=== PATIENT | male | born 1970 | race Caucasian/White ===

== ENCOUNTER 2022-09-12 12:23 | Day surgery (SDC) | payer OTHER, SELFPAY ==
[2022-09-12 12:46] VITALS: BP 133/81; PULSE 59; RESP 18; TEMP 36.7; O2SAT 98; BMI 25.1
[2022-09-12] MEDS: Lactated Ringers 1,000 ML 15 ML IV (12:52)
--- NOTE | 2022-09-12 13:11 | HP.PCM_ITS ---
History and Physical Date of Admission: 09/12/22 2 M who presents to the office today to establish with GI for intermittent difficulty swallowing for approx one yr. Not getting worse. Has to be careful when eating meat especially. Sometimes needs to cough the food back up. No ED visits for this. He takes TUMS about once a week for heartburn. 12/28/21 double contrast esophagram: esophageal shiver indicative of chronic inflammation usually seen in the setting of reflux although no reflux seen on this exam; a few tertiary contractions indicative of mild dysmotility. He doesn't have CP, known spasms. No nausea, vomiting, abd pain. No diarrhea, constipation, melena, hematochezia. Had colonoscopy in 2019, told to repeat in 10 yrs. PMH includes migraines, HTN, hyperlipidemia ROS Const Constitutional: No fatigue ENT ENT: Positive for difficulty swallowing Gastro GI: Positive for heartburn and difficulty swallowing; No abdominal pain, belching, bloating, change in bowel habits, change in stool character, coffee ground emesis, constipation, cramping, diarrhea, feeling full early, excessive flatus, incontinent of stools, Vomiting blood/hematemesis, Blood in stool, loose stools, Black,tarry stools, nausea/dyspepsia, pain with swallowing, vomiting or other Musc Musculoskeletal: Positive for back pain; No joint pain Skin Skin: No yellowing of the eye or itchy eyes Psych Psychiatric: No anxiety and No depression Endo Endocrine: No fatigue Aller/Imm Allergy/Immunologic: No itchy eyes Anatoliy/Lymp Hematologic/Lymphatic: No easy bleeding or easy bruising Exam Const General: cooperative, healthy appearing and comfortable Orientation: alert, awake and oriented x3 HENMT Head: normal to inspection Neck Neck: normal visual inspection Chest Chest palpation & inspection: normal inspection of the chest Resp Effort & Inspection: normal respiratory effort GI Inspection: normal to inspection Quality Reporting Tobacco Screening ([facility] 138) Smoking Status: Former smoker Assessment and Plan Assessment and Plan (1) Dysphagia: ?Status:?Chronic ?Plan: 52 yo male with esophageal dysphagia, likely due to reflux, may have a Schatzki ring. Esophagram with esophageal shiver which typically indicates reflux, there were some tertiary esphageal spasms. Will get EGD, with f/u in office 2 wks later. He declines PPI at this time. I have examined the patient and the H&P has been reviewed. There are no clinical changes since date of exam.
--- NOTE | 2022-09-12 13:30 | EGD_PTH ---
PATIENT: SANDRINE WITT LOC: EN U#:[id number] AGE/SX: 52/M ROOM: RE09/12/[address]: Dr. Esteban Robert DO : 1970 BED: DIS: 09/12/2022 SPEC #: [id number] RECD: 09/12/22 15:02 STATUS: KATHI RENatasha #: [id number] CARINA: 09/12/22 13:[address]: Esteban Robert DEPT: SURGICAL PATHOLOGY RECD BY: Tarun Ventura ENTERED: 09/13/22 10:39 SP TYPE: EGD BIOPSY EVA DR: Odette Sheridan, BELL CAPTAIN-C Tissues: A - Gastric mucous membrane B - Esophagus, NOS C - Esophagus, NOS Procedures: Surgery Specimen Level IV HEADER OPERATION: EGD ([facility]) PRE-OP DIAGNOSIS: Dysphagia TISSUE SUBMITTED: A ? Gastric body biopsy, B ? Distal esophagus biopsy, C ? Random esophagus biopsy MICROSCOPIC DIAGNOSIS A. Gastric body, biopsy: Mild gastritis. See microscopic description and comment. B. Distal esophagus, biopsy: Fragments of gastroesophageal mucosa with moderate chronic inflammation and mild acute inflammation. Intestinal metaplasia (goblet cell metaplasia) not identified. See comment. C. Esophagus, random biopsy: Fragments of squamous mucosa with mild chronic inflammation. SJ:rg 09/14/2022 COMMENT A. The results of immunohistochemistry for Helicobacter pylori will be reported separately ([id number]). B. Alcian blue/PAS stain with matched control is used in the evaluation of the specimen. MICROSCOPIC DESCRIPTION Slides are reviewed. A. The specimen shows fragments of gastric mucosa with chronic inflammatory cell infiltrates in the lamina propria consisting of lymphocytes and plasma cells, consistent with mild chronic gastritis. GROSS DESCRIPTION A - Received in fixative is one container labeled with the patient's name and designated gastric body biopsy. The specimen consists of one irregular fragment of light contreras soft tissue that measures 0.6 x 0.3 x 0.1 cm. The specimen is totally submitted in one cassette. B - Received in fixative is one container labeled with the patient's name and designated distal esophagus biopsy. The specimen consists of multiple irregular fragments of light contreras soft tissue that in aggregate measure 0.8 x 0.5 x 0.1 cm. The specimen is totally submitted in one cassette. C - Received in fixative is one container labeled with the patient's name and designated random esophagus biopsy. The specimen consists of multiple irregular fragments of light contreras soft tissue that in aggregate measure 1.0 x 0.3 x 0.1 cm. The specimen is totally submitted in one cassette. / STEPHAN:daisy 09/13/2022 TC:2 CPT: 43142 x3, 47496
--- NOTE | 2022-09-12 13:30 | IMM_PTH ---
PATIENT: SANDRINE WITT LOC: EN U#:[id number] AGE/SX: 52/M ROOM: RE09/12/[address]: Dr. Esteban Robert DO : 1970 BED: DIS: 09/12/2022 SPEC #: [id number] RECD: 09/13/22 08:34 STATUS: KATHI REQ #: [id number] CARINA: 09/12/22 13:[address]: Esteban Robert DEPT: IMMUNOHISTOCHEMISTRY RECD BY: Jessica Walter ENTERED: 09/13/22 08:35 SP TYPE: IMMUNO OTHR DR: Odette Sheridan, BLENDING TANK TENDER-C Tissues: A - Stomach, NOS Procedures: H Pylori (initial) PHYSICIAN & INSTITUTION [place] [id number] SPECIMEN INFORMATION: Tissue Source: A ? Gastric body Clinical Info: Dysphagia Specimen Number: [id number] CPT code: 99461 METHODOLOGY: Deparaffinized sections of prefer/formalin-fixed tissue or PAP/DQ stained slides are incubated with monoclonal/polyclonal antibodies/oligonucleotide probes. Localization is made via biotin free immunoperoxidase method. Appropriate controls are performed and reacted as expected. Results on target cell population are indicated in the following table: RESULTS: ANTIBODY / CLONE RESULT Block A H Pylori (polyclonal) negative These tests were developed and their performance characteristics determined by [facility]. They may not have been cleared or approved by the U.S. Food and Drug Administration. The FDA has determined that such clearance or approval is not necessary. The above immunohistochemical/dualISH markers are ordered and reviewed by the Pathologist. INTERPRETATION: A. Gastric body, biopsy: Negative for Helicobacter pylori organisms. SJ:daisy 09/14/2022
[2022-09-12 13:40] VITALS: BP 102/73; BP 133/81; PULSE 60; RESP 16; TEMP 36.5; O2SAT 96
[2022-09-12 13:45] VITALS: BP 105/68; BP 133/81; PULSE 60; RESP 16; O2SAT 97
--- NOTE | 2022-09-12 13:46 | OP.CCLET_ITS ---
09/12/2022 Odette Sheridan Re : Upper GI endoscopy procedure for Oswaldo Buckley Dear Fatimah This procedure was performed on Monday, September 12, 2022. My impressions and recommendations are as follows: Impressions : - LA Grade B reflux esophagitis. Biopsied. - Benign-appearing esophageal stenosis. Dilated. - Small hiatal hernia. - Erythematous mucosa in the gastric body. Biopsied. - Normal second portion of the duodenum. Recommendations : - Discharge patient to home. - Resume previous diet. - Continue present medications. - Await pathology results. - Use Protonix (pantoprazole) 40 mg PO BID for 8 weeks. My findings are described in the full procedure note, which is enclosed. If I can be of further assistance, please feel free to contact me at . Sincerely, Esteban Robert, 09/12/2022 1:45:40 PM This report has been signed electronically.
--- NOTE | 2022-09-12 13:46 | OP.EGD_ITS ---
Patient Name: Oswaldo Buckley Procedure Date: 09/12/2022 1:08 PM Date of : 1970 Age: 52 Procedure: Upper GI endoscopy Indications: Dysphagia, Heartburn, Suspected esophageal reflux Providers: Esteban Robert DO Referring MD: Esteban Robert DO Medicines: Monitored Anesthesia Care Patient Profile: This is a 52 year old male. Refer to note in patient chart for documentation of history and physical. Patient has symptoms of dysphagia with solids and chronic heartburn. Complications: No immediate complications. Procedure: Pre-Anesthesia Assessment: - Prior to the procedure, a History and Physical was performed, and patient medications and allergies were reviewed. The patient is competent. The risks and benefits of the procedure and the sedation options and risks were discussed with the patient. All questions were answered and informed consent was obtained. Patient identification and proposed procedure were verified by the physician in the pre-procedure area. Mental Status Examination: alert and oriented. Airway Examination: normal oropharyngeal airway and neck mobility. Respiratory Examination: clear to auscultation. CV Examination: normal. Prophylactic Antibiotics: The patient does not require prophylactic antibiotics. Prior Anticoagulants: The patient has taken no previous anticoagulant or antiplatelet agents. ASA Grade Assessment: II - A patient with mild systemic disease. After reviewing the risks and benefits, the patient was deemed in satisfactory condition to undergo the procedure. The anesthesia plan was to use monitored anesthesia care (MAC). Immediately prior to administration of medications, the patient was re-assessed for adequacy to receive sedatives. The heart rate, respiratory rate, oxygen saturations, blood pressure, adequacy of pulmonary ventilation, and response to care were monitored throughout the procedure. The physical status of the patient was re-assessed after the procedure. After obtaining informed consent, the endoscope was passed under direct vision. Throughout the procedure, the patient's blood pressure, pulse, and oxygen saturations were monitored continuously. The gastroscope was introduced through the mouth, and advanced to the second part of duodenum. The upper GI endoscopy was accomplished without difficulty. The patient tolerated the procedure well. Scope In: 1:25:14 PM Scope Out: 1:32:35 PM Total Procedure Duration Time 0 hours 7 minutes 21 seconds Findings: LA Grade B (one or more mucosal breaks greater than 5 mm, not extending between the tops of two mucosal folds) esophagitis with no bleeding was found 36 to 39 cm from the incisors. Biopsies were taken with a cold forceps for histology. Verification of patient identification for the specimen was done. Estimated blood loss was minimal. One benign-appearing, intrinsic stenosis was found 20 to 22 cm from the incisors. This stenosis was moderately severe and. The stenosis was traversed. A guidewire was placed and the scope was withdrawn. Dilation was performed with a Savary dilator with no resistance at 42 Fr. The dilation site was examined and showed moderate improvement in luminal narrowing. A small hiatal hernia was present. Patchy mildly erythematous mucosa without bleeding was found in the gastric body. Biopsies were taken with a cold forceps for histology. Verification of patient identification for the specimen was done. Estimated blood loss was minimal. The second portion of the duodenum was normal. Impression: - LA Grade B reflux esophagitis. Biopsied. - Benign-appearing esophageal stenosis. Dilated. - Small hiatal hernia. - Erythematous mucosa in the gastric body. Biopsied. - Normal second portion of the duodenum. Recommendation: - Discharge patient to home. - Resume previous diet. - Continue present medications. - Await pathology results. - Use Protonix (pantoprazole) 40 mg PO BID for 8 weeks. Procedure Code(s): --- Professional --- 18720, Esophagogastroduodenoscopy, flexible, transoral; with insertion of guide wire followed by passage of dilator(s) through esophagus over guide wire 23830, 59, Esophagogastroduodenoscopy, flexible, transoral; with biopsy, single or multiple CPT copyright 2017 [employer]. All rights reserved. The codes documented in this report are preliminary and upon water plant pump operator supervisor review may be revised to meet current compliance requirements. Esteban Robert DO 09/12/2022 1:45:40 PM This report has been signed electronically. Number of Addenda: 0 Note Initiated On: 09/12/2022 1:08 PM
[2022-09-12 13:50] VITALS: BP 109/63; BP 133/81; PULSE 59; RESP 16; O2SAT 96
[2022-09-12 13:55] VITALS: BP 104/75; BP 133/81; PULSE 59; RESP 16; TEMP 36.1; O2SAT 97
[2022-09-12 15:00] VITALS: BP 133/81
== END 2022-09-12 15:05 | disposition home or self-care (01) ==
LOC: EN 12:27 → AC 12:31
PROVIDERS: PCP Registered Nurse; Referring Provider Registered Nurse; Visit Provider Internal Medicine Gastroenterology
PROC: 0DJ08ZZ Inspection of Upper Intestinal Tract, Via Natural or Artificial Opening Endoscopic (ICD-10-PCS; CPT 43235; principal; 2022-09-12 13:25)
DX: K21.00 Gastro-esophageal reflux disease with esophagitis, without bleeding (principal); K44.9 Diaphragmatic hernia without obstruction or gangrene; Z87.891 Personal history of nicotine dependence; K22.2 Esophageal obstruction; K29.70 Gastritis, unspecified, without bleeding; I10 Essential (primary) hypertension; E78.5 Hyperlipidemia, unspecified; Z79.899 Other long term (current) drug therapy
CPT/HCPCS: 43248; 43239; 88305; 88342; J7120; J2405

== ENCOUNTER 2023-09-03 09:14 | Day surgery (SDC) | payer OTHER, SELFPAY ==
[2023-09-03] VITALS (7 sets, daily range): BP systolic 121–136; BP diastolic 89–93; PULSE 56–72; RESP 16; TEMP 36.5–37.3; O2SAT 96–97; BMI 26.2
[2023-09-03] MEDS: Lactated Ringers 1,000 ML 15 ML IV (09:30)
--- NOTE | 2023-09-03 10:15 | GASB_PTH ---
PATIENT: SANDRINE WITT LOC: EN U#:[id number] AGE/SX: 53/M ROOM: RE09/03/[address]: Dr. Esteban Robert DO : 1970 BED: DIS: 09/03/2023 SPEC #: [id number] RECD: 09/03/23 11:07 STATUS: KATHI CARPENTERNatasha #: [id number] CARINA: 09/03/23 10:[address]: Esteban Robert DEPT: SURGICAL PATHOLOGY RECD BY: Tarun Ventura ENTERED: 09/03/23 13:39 SP TYPE: Gastric Bx OTHR DR: Odette Sheridan, GUNSMITH APPRENTICE-C Tissues: Gastric mucous membrane Procedures: Surgery Specimen Level IV HEADER OPERATION: Colonoscopy PRE-OP DIAGNOSIS: Encounter for screening for malignant neoplasm of colon TISSUE SUBMITTED: Hepatic flexure polyp biopsy MICROSCOPIC DIAGNOSIS Hepatic flexure polyp, biopsy: Tubular adenoma. STEPHAN/mr 09/04/23 MICROSCOPIC DESCRIPTION Slides are reviewed. GROSS DESCRIPTION Received in fixative is one container labeled with the patient's name and designated Hepatic flexure polyp. The specimen consists of one irregular fragment of light contreras soft tissue that measures 0.5 x 0.3 x 0.1 cm. The specimen is totally submitted in one cassette. AM/mr 09/03/23 TC:1 CPT:63910
--- NOTE | 2023-09-03 10:16 | HP.PCM_ITS ---
HPI - General General Date of Admission: 09/03/23 Date of Service: 09/03/23 Chief Complaint: Screening colonoscopy HPI Rose WITT, is a 53 M who presents today for screening colonoscopy. He has a past medical history of gas/reflux disease and intermittent esophageal dysphagia secondary to stenotic his ring. He comes in today for screening colonoscopy. He is not having abdominal pain. He is not any cramping. He is not any chest pain or shortness of breath. Overall is in very good health. [facility] Medical History Alcohol use Anxiety Arthritis Dysphagia Former smoker Gastric reflux Heartburn HLD (hyperlipidemia) HTN (hypertension) Migraines Home Medications acetaminophen 325 mg capsule 325 mg PO DAILY PRN pain 05/08/22 [History Last Taken 09/02/23] buspirone 10 mg tablet 10 mg PO DAILY 05/08/22 [History Last Taken 09/02/23] divalproex 250 mg tablet,delayed release 250 mg PO BID PREVENT MIGRAINES 05/08/22 [History Last Taken 09/02/23] lisinopril 5 mg tablet 5 mg PO QHS 05/08/22 [History Last Taken 09/02/23] metoprolol tartrate 100 mg tablet 100 mg PO DAILY 05/08/22 [History Last Taken 09/02/23] sumatriptan succinate 50 mg tablet 50 mg PO PRN PRN MIGRAINES 05/08/22 [History Last Taken Unknown] pantoprazole 40 mg tablet,delayed release 40 mg PO BID 2 months #120 tabs 09/12/22 [Rx Last Taken 09/02/23] aspirin 81 mg tablet,delayed release (Adult Low Dose Aspirin) 81 mg PO DAILY 08/29/23 [History Last Taken 08/30/23] Allergy/AdvReac Type Severity Reaction Status Date / Time amoxicillin [From Augmentin] Allergy Intermediate Other Verified 09/03/23 09:27 clavulanic acid Allergy Intermediate Other Verified 09/03/23 09:27 [From Augmentin] Family History Mother Diabetes Heart disease Kidney disease Hypertension Father Asthma Heart disease Hypertension Surgical History H/O inguinal hernia repair History of appendectomy Hx of colonoscopy Social History (Updated 08/29/23 @ 11:09 by Linda Damon) household members: spouse current occupational status: employed Smoking Status: Former smoker alcohol intake: current alcohol intake frequency: 0-2 drinks per day substance use type: does not use ROS Review of Systems ROS Unobtainable: other Constitutional Constitutional: Denies fatigue, fever(s), poor appetite, weight gain or weight loss ENT HEENT: Denies mouth lesions Cardiovascular Cardiovascular: Denies abdominal bloating, abdominal edema or abdominal pain Respiratory/Chest Respiratory/Chest: Denies change in mental status, change in phlegm color, chest congestion or chest tightness Gastrointestinal Gastrointestinal: Denies belching, bloating, change in bowel habits, change in stool character, chewing difficulty, coffee ground emesis, constipation, cramping, diarrhea, dyspepsia, dysphagia, early satiety, excessive flatus, fecal incontinence, heartburn, hematemesis, hematochezia, hemorrhoids, loose stools, melena, nausea, odynophagia, rectal bleeding, tenesmus, vomiting or weight changes Genitourinary Genitourinary: Denies abdominal discomfort, burning urination or itching Musculoskeletal Musculoskeletal: Reports as per HPI; Denies muscle weakness or myalgias Integumentary Integumentary: Denies jaundice Neurologic Neurologic: Denies lack of coordination or weakness Psychiatric Psychiatric: Denies confusion, depression, memory loss, mood swings, paranoia or suicidal ideation Endocrine Endocrinology: Denies systems reviewed and no addt'l complaints, except as documented Hematologic/Lymphatic Hematologic/Lymphatic: Denies anemia, easy bleeding, easy bruising or lymphadenopathy Allergic/Immunologic Allergic/Immunologic: Denies systems reviewed and no addt'l complaints, except as documented Vital Signs Vital Signs Vital Signs: 09/03/23 09:28 09/03/23 09:28 Temperature 98.4 F Temperature Source Temporal Pulse Rate 70 Respiratory Rate 16 Respiratory Pattern Normal Blood Pressure 136/92 H Blood Pressure Mean 106 Blood Pressure Source Monitor Blood Pressure Position Semi-Fowlers Blood Pressure Location Right Arm Pulse Ox 97 Oxygen Delivery Method Room Air Weight Weight: 182 lb 12.211 oz Body Mass Index (BMI) 26.2 Physical Exam Const alert General Appearance: cooperative Orientation / Consciousness: oriented to person HEENT hearing grossly normal bilaterally Head and Scalp: normal to inspection Face and Sinus: face symmetric Nose: external nose normal Mouth: oral and palatal mucosa normal Eyes conjunctivae normal General Eye: normal appearance of both eyes Neck full ROM General: normal visual inspection Lymph Lymphatic: no lymphadenopathy noted Chest inspection of chest normal and palpation of chest normal Chest: symmetrical chest wall rise Resp normal respiratory effort Effort and Inspection: able to speak in complete sentences Cardio regular rate GI non-distended Percussion: normal to percussion Rectal Exam: deferred Neuro Speech: speech normal Gait (Neuro): normal gait Assessment & Plan Assessment/Plan (1) Encounter for screening for malignant neoplasm of colon: PLAN: He was explained alternatives, risk, benefits including not withstanding bleeding, infection, sepsis, perforation, need for emergent surgery and . He will have an ASA of 2.
--- NOTE | 2023-09-03 10:49 | OP.COLON_ITS ---
Patient Name: Oswaldo Buckley Procedure Date: 09/03/2023 10:13 AM Date of : 1970 Age: 53 Procedure: Colonoscopy Indications: Screening for colorectal malignant neoplasm Providers: DO Bethany Puckett MD: Radha Durbin Medicines: Monitored Anesthesia Care Patient Profile: Last Colonoscopy: more than 10 years ago. Complications: No immediate complications. Procedure: Pre-Anesthesia Assessment: - Prior to the procedure, a History and Physical was performed, and patient medications and allergies were reviewed. The patient is competent. The risks and benefits of the procedure and the sedation options and risks were discussed with the patient. All questions were answered and informed consent was obtained. Patient identification and proposed procedure were verified by the physician in the pre-procedure area. Mental Status Examination: alert and oriented. Airway Examination: normal oropharyngeal airway and neck mobility. Respiratory Examination: clear to auscultation. CV Examination: normal. Prophylactic Antibiotics: The patient does not require prophylactic antibiotics. Prior Anticoagulants: The patient has taken no anticoagulant or antiplatelet agents. ASA Grade Assessment: III - A patient with severe systemic disease. After reviewing the risks and benefits, the patient was deemed in satisfactory condition to undergo the procedure. The anesthesia plan was to use monitored anesthesia care (MAC). Immediately prior to administration of medications, the patient was re-assessed for adequacy to receive sedatives. The heart rate, respiratory rate, oxygen saturations, blood pressure, adequacy of pulmonary ventilation, and response to care were monitored throughout the procedure. The physical status of the patient was re-assessed after the procedure. After I obtained informed consent, the scope was passed under direct vision. Throughout the procedure, the patient's blood pressure, pulse, and oxygen saturations were monitored continuously. The pediatric colonoscope was introduced through the anus and advanced to the cecum, identified by appendiceal orifice and ileocecal valve. The colonoscopy was performed without difficulty. The patient tolerated the procedure well. The quality of the bowel preparation was adequate. Scope In: 10:27:25 AM Scope Withdrawal Time 0 hours 8 minutes 37 seconds Scope Out: 10:41:55 AM Total Procedure Duration Time 0 hours 14 minutes 30 seconds Findings: The perianal and digital rectal examinations were normal. A few small-mouthed diverticula were found in the recto-sigmoid colon and sigmoid colon. A 3 mm polyp was found in the hepatic flexure. The polyp was sessile. The polyp was removed with a jumbo cold forceps. Resection and retrieval were complete. Verification of patient identification for the specimen was done. Estimated blood loss was minimal. The exam was otherwise without abnormality on direct and retroflexion views. Impression: - Diverticulosis in the recto-sigmoid colon and in the sigmoid colon. - One 3 mm polyp at the hepatic flexure, removed with a jumbo cold forceps. Resected and retrieved. - The examination was otherwise normal on direct and retroflexion views. Recommendation: - Discharge patient to home. - Resume previous diet. - Continue present medications. - Await pathology results. - Repeat colonoscopy in 5 years for surveillance. Procedure Code(s): --- Professional --- 00996, Colonoscopy, flexible; with biopsy, single or multiple CPT copyright 2021 [employer]. All rights reserved. The codes documented in this report are preliminary and upon cloud systems architect review may be revised to meet current compliance requirements. Esteban Robert DO 09/03/2023 10:49:25 AM This report has been signed electronically. Number of Addenda: 0 Note Initiated On: 09/03/2023 10:13 AM
--- NOTE | 2023-09-03 10:50 | OP.CCLET_ITS ---
09/03/2023 Radha Durbin Re : Colonoscopy procedure for Oswaldo Buckley Dear Fatimah This procedure was performed on Sunday, September 03, 2023. My impressions and recommendations are as follows: Impressions : - Diverticulosis in the recto-sigmoid colon and in the sigmoid colon. - One 3 mm polyp at the hepatic flexure, removed with a jumbo cold forceps. Resected and retrieved. - The examination was otherwise normal on direct and retroflexion views. Recommendations : - Discharge patient to home. - Resume previous diet. - Continue present medications. - Await pathology results. - Repeat colonoscopy in 5 years for surveillance. My findings are described in the full procedure note, which is enclosed. If I can be of further assistance, please feel free to contact me at . Sincerely, Esteban Robert, 09/03/2023 10:49:25 AM This report has been signed electronically.
== END 2023-09-03 11:43 | disposition home or self-care (01) ==
LOC: EN 09:16 → AC 09:17
PROVIDERS: PCP Registered Nurse; Referring Provider Registered Nurse; Visit Provider Internal Medicine Gastroenterology
PROC: 0DJD8ZZ Inspection of Lower Intestinal Tract, Via Natural or Artificial Opening Endoscopic (ICD-10-PCS; CPT 45378; principal; 2023-09-03 10:10)
DX: Z12.11 Encounter for screening for malignant neoplasm of colon (principal); K63.5 Polyp of colon; I10 Essential (primary) hypertension; K57.30 Diverticulosis of large intestine without perforation or abscess without bleeding; Z87.891 Personal history of nicotine dependence; Z79.82 Long term (current) use of aspirin; E78.5 Hyperlipidemia, unspecified; K21.9 Gastro-esophageal reflux disease without esophagitis; F41.9 Anxiety disorder, unspecified; Z79.899 Other long term (current) drug therapy; Z90.49 Acquired absence of other specified parts of digestive tract
CPT/HCPCS: 44389; 88305; J7120; J2405